=== PATIENT | female | born 1950 | race Caucasian/White ===

== ENCOUNTER 2020-04-05 07:30 | Outpatient (RCR) | payer MEDICARE, OTHER, SELFPAY ==
--- NOTE | 2020-03-23 15:00 | PT.OPPOC ---
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) Visit Care Team Role Provider Type Ingrid Palacios MD Family Provider Non-Staff Primary Care Provider Specialty: Medical Address: [address] [place] [address], [id number] Email: Naida Spears MD Attending Provider Non-Staff Referring Provider Specialty: Urology Address: [address], [address], [place], [address] Email: Plan Of Care PT-OP-T Assessment and Plan Start: 03/23/20 11:57 Freq: Status: Active Protocol: Document 03/23/20 13:30 AMB (Rec: 03/27/20 13:25 AMB [email or web address]) Physical Therapy Assessment Rehab Potential Rehabilitation Potential Good Evaluation Complexity Number of Personal Factors/Comorbidities 0 Number of Body Systems Impaired 1-2 Clinical Presentation at Evaluation Stable Impairments Impairments Strength Goals Two Impairment pelvic floor weakness Short Term Goal (STG) Adalgisa will lift 15# from the floor to waist height with good body mechanics and appropriate pelvic floor contraction. STG Duration 4 weeks One Impairment HEP Short Term Goal (STG) Adalgisa will be independent and consistent with a HEP for pelvic floor strengthening. STG Duration 4 weeks Assessment Summary Assessment Adalgisa attends physical therapy with rectocele s/p sling surgery for cystocele this summer, with prior hysterectomy for uterine cancer. She denies sx, but is concerned about it worsening with time. She denies activities where she strains very much, but did just have COVID, so may have been coughing more with that. She is currently moving, so is moving moving boxes around. She displayed mild weakness of the pelvic floor, but was able to activate it, did have a tendency to hold her breath. She will benefit from physical therapy to instruct her in a exercise program and to reduce straining to avoid worsening of her prolapse. Physical Therapy Plan Frequency and Duration Frequency of Treatment 1x/Week Duration of Treatment 6 weeks Plan of Care Start Date 03/23/20 Plan of Care End Date 05/04/20 Therapeutic Interventions Therapeutic Interventions Home Exercise Program,Manual Therapy,Neuromuscular Re- education,Self-Care/Home Management,Therapeutic Activities,Therapeutic Exercises Modalities Biofeedback,Electric Stimulation Next Visit Focus/Plan Next Note Type Treatment Note Next Visit Plan sEMG, HEP Plan of Care Dates Plan of Care Start Date 03/23/20 Plan of Care End Date 05/04/20 Electronically Signed by: Yamilet Odne, PT 03/27/20 [id number] Please Sign and Return: I have reviewed this Plan of Care and certify that the skilled therapy services above are required to meet the patient?s needs. Physician Signature Date Printed Name and Credentials Clinical Instructor Signature Printed Name and Credentials
--- NOTE | 2020-03-23 15:00 | PT.OIE ---
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) Visit Care Team Role Provider Type Ingrid Palacios MD Family Provider Non-Staff Primary Care Provider Specialty: Medical Address: [address] [place] [address], [phone] Email: Naida Spears MD Attending Provider Non-Staff Referring Provider Specialty: Urology Address: [address] [place] [address] [address], [address], [place], [address] Email: Physical Therapy Initial Evaluation PT-OP-A Visit Information Start: 03/23/20 11:57 Freq: Status: Active Protocol: Document 03/23/20 13:30 AMB (Rec: 03/27/20 13:25 AMB [email or web address]) Out-Patient Physical Therapy Visit Information Visit Information Visit Type Initial Evaluation Visit Start Time 13:30 Visit Stop Time 14:15 Total Visit Minutes 45 Visit Number 1 PT-OP-B Current Condition Start: 03/23/20 11:57 Freq: Status: Active Protocol: Document 03/23/20 13:29 AMB (Rec: 03/23/20 14:08 AMB [id number]) Current Condition History of Current Condition Onset Date August 2019 Current Complaints rectocele History of Current Condition Adalgisa attends physical therapy s/p sling surgery this summer, and 2 months later her physcian noted rectocele. She states it is asymptomatic. She has had 3 vaginal deliveries with episiotomy. She thinks she had the prolapse for about a year before her surgery. She denies leaking or pelvic pain. She does have nocturia, and does not drink very much water . Treatment Goals Patient/Caregiver Goals Learn exercises to help rectocele Prior Functional Status Baseline Function- ADL's Independent Baseline Function- Mobility Independent PT-OP-C Subjective Start: 03/23/20 11:57 Freq: Status: Active Protocol: Document 03/23/20 13:30 AMB (Rec: 03/27/20 13:25 AMB [email or web address]) Patient Questionnaires Pelvic Pain and Urgency/Frequency Patient Symptom Scale Pelvic Pain Score 8 PT-OP-I Pelvic Floor Start: 03/23/20 11:57 Freq: Status: Active Protocol: Document 03/23/20 13:30 AMB (Rec: 03/27/20 13:25 AMB [email or web address]) Pelvic Floor Assessment Urine Pelvic Floor Surgery Yes: sling summer 2019 Urinary Symptoms Prolapse Nocturia 3 Prolapse Rectocele Grade 3 Perineal Descent Resting Present Bearing Present Contraction Ability Manual Muscle Testing Left 2 Manual Muscle Testing Right 2 Manual Muscle Testing Anterior 2 Manual Muscle Testing Posterior 3 Muscle Endurance (Seconds) 10 Number of Quick Contractions In 10 4 Seconds PT-OP-T Assessment and Plan Start: 03/23/20 11:57 Freq: Status: Active Protocol: Document 03/23/20 13:30 AMB (Rec: 03/27/20 13:25 AMB [email or web address]) Physical Therapy Assessment Rehab Potential Rehabilitation Potential Good Evaluation Complexity Number of Personal Factors/Comorbidities 0 Number of Body Systems Impaired 1-2 Clinical Presentation at Evaluation Stable Impairments Impairments Strength Goals Two Impairment pelvic floor weakness Short Term Goal (STG) Adalgisa will lift 15# from the floor to waist height with good body mechanics and appropriate pelvic floor contraction. STG Duration 4 weeks One Impairment HEP Short Term Goal (STG) Adalgisa will be independent and consistent with a HEP for pelvic floor strengthening. STG Duration 4 weeks Assessment Summary Assessment Adalgisa attends physical therapy with rectocele s/p sling surgery for cystocele this summer, with prior hysterectomy for uterine cancer. She denies sx, but is concerned about it worsening with time. She denies activities where she strains very much, but did just have COVID, so may have been coughing more with that. She is currently moving, so is moving moving boxes around. She displayed mild weakness of the pelvic floor, but was able to activate it, did have a tendency to hold her breath. She will benefit from physical therapy to instruct her in a exercise program and to reduce straining to avoid worsening of her prolapse. Physical Therapy Plan Frequency and Duration Frequency of Treatment 1x/Week Duration of Treatment 6 weeks Plan of Care Start Date 03/23/20 Plan of Care End Date 05/04/20 Therapeutic Interventions Therapeutic Interventions Home Exercise Program,Manual Therapy,Neuromuscular Re- education,Self-Care/Home Management,Therapeutic Activities,Therapeutic Exercises Modalities Biofeedback,Electric Stimulation Next Visit Focus/Plan Next Note Type Treatment Note Next Visit Plan sEMG, HEP
--- NOTE | 2020-03-29 11:44 | PT.OTN ---
Current Diagnoses Rectocele (03/29/20) Prolapse of vaginal vault after hysterectomy (03/29/20) Physical Therapy Treatment Note PT-OP-A Visit Information Start: 03/23/20 11:57 Freq: Status: Active Protocol: Document 03/29/20 11:00 AMB (Rec: 03/29/20 11:44 AMB [id number]) Out-Patient Physical Therapy Visit Information Visit Information Visit Type Treatment Note Visit Start Time 11:00 Visit Stop Time 11:45 Total Visit Minutes 45 Visit Number 2 PT-OP-B Current Condition Start: 03/23/20 11:57 Freq: Status: Active Protocol: Document 03/23/20 13:29 AMB (Rec: 03/23/20 14:08 AMB [id number]) Current Condition History of Current Condition Onset Date August 2019 Current Complaints rectocele History of Current Condition Adalgisa attends physical therapy s/p sling surgery this summer, and 2 months later her physcian noted rectocele. She states it is asymptomatic. She has had 3 vaginal deliveries with episiotomy. She thinks she had the prolapse for about a year before her surgery. She denies leaking or pelvic pain. She does have nocturia, and does not drink very much water . Treatment Goals Patient/Caregiver Goals Learn exercises to help rectocele Prior Functional Status Baseline Function- ADL's Independent Baseline Function- Mobility Independent PT-OP-C Subjective Start: 03/23/20 11:57 Freq: Status: Active Protocol: Document 03/29/20 11:00 AMB (Rec: 03/29/20 11:44 AMB [id number]) OP-PT Subjective Patient Comments Patient Comments Adalgisa states she is doing well, she has been doing her exercises in sitting and standing and they have been going well. PT-OP-I Pelvic Floor Start: 03/23/20 11:57 Freq: Status: Active Protocol: Document 03/23/20 13:30 AMB (Rec: 03/27/20 13:25 AMB [email or web address]) Pelvic Floor Assessment Urine Pelvic Floor Surgery Yes: sling summer 2019 Urinary Symptoms Prolapse Nocturia 3 Prolapse Rectocele Grade 3 Perineal Descent Resting Present Bearing Present Contraction Ability Manual Muscle Testing Left 2 Manual Muscle Testing Right 2 Manual Muscle Testing Anterior 2 Manual Muscle Testing Posterior 3 Muscle Endurance (Seconds) 10 Number of Quick Contractions In 10 4 Seconds PT-OP-Q Treatments Start: 03/23/20 11:57 Freq: Status: Active Protocol: Document 03/29/20 11:00 AMB (Rec: 03/29/20 11:44 AMB [id number]) Therapeutic Exercises Standing Exercises 2 Standing Exercise Name PF contract with partial squat Reps/Minutes 10 Comments vc hips back 1 Standing Exercise Name standing quick flicks and long holds Neuro Re-Education Treatment Other Activities 1 Details sEMG Comments baseline 3, max 19, avg 9 with quick flicks long holds: baseline 3, max 17 .6, avg 10 PT-OP-T Assessment and Plan Start: 03/23/20 11:57 Freq: Status: Active Protocol: Document 03/29/20 11:00 AMB (Rec: 03/29/20 11:44 AMB [id number]) Physical Therapy Assessment Assessment Summary Assessment Adalgisa did well with standing exercises, but it is hard to contract PF at the bottom of the squat Physical Therapy Plan Next Visit Focus/Plan Next Note Type Treatment Note Next Visit Plan Standing HEP, functional lifting with pelvic floor in standing.
--- NOTE | 2020-04-05 08:24 | PT.OTN ---
Current Diagnoses Rectocele (04/05/20) Prolapse of vaginal vault after hysterectomy (04/05/20) Physical Therapy Treatment Note PT-OP-A Visit Information Start: 03/23/20 11:57 Freq: Status: Active Protocol: Document 04/05/20 07:33 AMB (Rec: 04/05/20 08:23 AMB [id number]) Out-Patient Physical Therapy Visit Information Visit Information Visit Type Treatment Note Visit Start Time 11:00 Visit Stop Time 11:45 Total Visit Minutes 45 Visit Number 3 PT-OP-B Current Condition Start: 03/23/20 11:57 Freq: Status: Active Protocol: Document 03/23/20 13:29 AMB (Rec: 03/23/20 14:08 AMB [id number]) Current Condition History of Current Condition Onset Date August 2019 Current Complaints rectocele History of Current Condition Adalgisa attends physical therapy s/p sling surgery this summer, and 2 months later her physcian noted rectocele. She states it is asymptomatic. She has had 3 vaginal deliveries with episiotomy. She thinks she had the prolapse for about a year before her surgery. She denies leaking or pelvic pain. She does have nocturia, and does not drink very much water . Treatment Goals Patient/Caregiver Goals Learn exercises to help rectocele Prior Functional Status Baseline Function- ADL's Independent Baseline Function- Mobility Independent PT-OP-C Subjective Start: 03/23/20 11:57 Freq: Status: Active Protocol: Document 04/05/20 07:33 AMB (Rec: 04/05/20 08:23 AMB [id number]) OP-PT Subjective Patient Comments Patient Comments Adalgisa states she is doing well, exercises are going fine. PT-OP-I Pelvic Floor Start: 03/23/20 11:57 Freq: Status: Active Protocol: Document 03/23/20 13:30 AMB (Rec: 03/27/20 13:25 AMB [email or web address]) Pelvic Floor Assessment Urine Pelvic Floor Surgery Yes: sling summer 2019 Urinary Symptoms Prolapse Nocturia 3 Prolapse Rectocele Grade 3 Perineal Descent Resting Present Bearing Present Contraction Ability Manual Muscle Testing Left 2 Manual Muscle Testing Right 2 Manual Muscle Testing Anterior 2 Manual Muscle Testing Posterior 3 Muscle Endurance (Seconds) 10 Number of Quick Contractions In 10 4 Seconds PT-OP-Q Treatments Start: 03/23/20 11:57 Freq: Status: Active Protocol: Document 04/05/20 07:33 AMB (Rec: 04/05/20 08:23 AMB [id number]) Therapeutic Exercises Supine Exercises 2 Supine Exercise Name double bent knee lift Comments with PF 1 Supine Exercise Name bridge Comments with PF Standing Exercises 3 Standing Exercise Name contract PF with arm exercises Comments bicep, ant deltoid 2 Standing Exercise Name PF contract with partial squat Reps/Minutes 10 Comments vc hips back, breath 1 Standing Exercise Name standing quick flicks and long holds Therapeutic Activity Therapeutic Activity 1 Name lifting training Comments 10# floor to waist PT-OP-T Assessment and Plan Start: 03/23/20 11:57 Freq: Status: Active Protocol: Document 04/05/20 07:33 AMB (Rec: 04/05/20 08:23 AMB [id number]) Physical Therapy Assessment Goals Two Impairment pelvic floor weakness Short Term Goal (STG) Adalgisa will lift 15# from the floor to waist height with good body mechanics and appropriate pelvic floor contraction. STG Duration MET One Impairment HEP Short Term Goal (STG) Adalgisa will be independent and consistent with a HEP for pelvic floor strengthening. STG Duration MET Assessment Summary Assessment Pt has improved with her ability to contract her pelvic floor and is moving so she would like to discharge at this time. Pt given HEP that she was able to perform appropriately. Physical Therapy Plan Discharge Physical Therapy Discharge Reasons Goals Met
== END 2020-04-05 11:52 ==
LOC: PHYS 07:30
PROVIDERS: Family Provider Internal Medicine Geriatric Medicine; PCP Internal Medicine Geriatric Medicine; Referring Provider Urology; Visit Provider Urology
DX: N99.3 Prolapse of vaginal vault after hysterectomy (principal)
CPT/HCPCS: 97110; 97112; 97161

== ENCOUNTER → 2024-01-09 16:55 | Outpatient (CLI) | payer OTHER, SELFPAY ==
--- NOTE | 2024-01-09 16:58 | DI.CT.S_ITS ---
PROCEDURE: CT ABDOMEN PELVIS W CON INDICATIONS: llq abdominal pain TECHNIQUE: After the administration of intravenous contrast, axial sections acquired from the lung bases to the pubic symphysis. Coronal and sagittal reformats were performed. For radiation dose reduction, the following was used: automated exposure control, adjustment of mA and/or kV according to patient size. COMPARISON: None. FINDINGS: Image quality: Diagnostic. Lower Chest: Lung bases are clear. Small hiatal hernia. ABDOMEN: Liver: There is diffuse hypoattenuation of the liver parenchyma relative to the spleen compatible with hepatic steatosis. Gallbladder: Multiple layering gallstones. No CT evidence for acute cholecystitis. Biliary ducts: No biliary dilation. Pancreas: No ductal dilation. Spleen: Size is within normal limits. Adrenal Glands: No adrenal nodules. Kidneys and Ureters: No hydronephrosis. No solid mass. No complex renal cystic lesion which requires follow up. Stomach and Bowel: There is extensive scattered colonic diverticulosis without acute diverticulitis. Short segment of circumferential wall thickening of the distal sigmoid colon near the rectosigmoid junction more than expected for degree of distension. No evidence for small bowel obstruction or associated inflammatory changes. Peritoneum: No abnormal intraperitoneal fluid. No free air. Ventral Wall: No significant ventral hernia. Abdominal Nodes: No retroperitoneal or mesenteric adenopathy by size criteria. Vessels: Aorta and inferior vena cava are normal in size. PELVIS: Pelvic Organs: Unremarkable. Bladder: No bladder wall thickening, accounting for underdistention. Pelvic Nodes: No enlarged lymph nodes. Miscellaneous: No inguinal hernias are seen. Bones: No aggressive osseous abnormality. No acute vertebral body compression fractures. Multilevel spondylitic changes throughout the imaged spine. No suspicious osseous lesions. IMPRESSION: Short segment of distal sigmoid colon wall thickening near the rectosigmoid junction suggestive of proctocolitis either infectious or inflammatory in etiology. There is moderate scattered colonic diverticulosis without findings to suggest acute diverticulitis. Small hiatal hernia. Cholelithiasis without CT evidence for acute cholecystitis. Hepatic steatosis. Dictated by: Jd Bustamante M.D. on 01/09/2024 at 19:57 Approved by: Jd Bustamante M.D. on 01/09/2024 at 20:03
== END ==
LOC: CT 16:57
PROVIDERS: Family Provider Internal Medicine Geriatric Medicine; PCP Internal Medicine Geriatric Medicine; Referring Provider Family Medicine; Visit Provider Family Medicine
DX: R10.9 Unspecified abdominal pain (principal); K57.30 Diverticulosis of large intestine without perforation or abscess without bleeding; K44.9 Diaphragmatic hernia without obstruction or gangrene; K80.20 Calculus of gallbladder without cholecystitis without obstruction; K76.0 Fatty (change of) liver, not elsewhere classified
CPT/HCPCS: 74177; Q9967